=== PATIENT | male | born 2000 | race Hispanic/Latino ===

== ENCOUNTER 2024-02-29 19:38 | Emergency (ER) | payer SELFPAY ==
[2024-02-29 20:05] LABS: Absolute Lymphocytes (CBC) 2.2 K/uL (0.7-4.9); Absolute Monocytes 0.8 K/uL (0.1-1.3); Absolute Neutrophil 4.7 K/uL (1.8-8.0); Basophils % 0.3 % (0-1.3); Eosinophils % 0.5 % (0-4.4); Hematocrit 42.7 % (39.6-49.0); Hemoglobin 14.7 g/dL (13.6-17.9); Lymphocytes % 28.1 % (15.3-44.8); MCH 28.6 pg (27.0-35.0); MCHC 34.5 g/dL (32.0-36.0); MCV 83.1 fL (80-100); MPV 8.6 fL (7.6-11.3); Monocytes % 9.9 % (3.3-12.3); Neutrophils % 61.2 % (41.7-73.7); Nucleated Red Blood Cells % 0.4 % (0-0); Platelets 231 thou/uL (152-406); RBC Red Blood Cell Count 5.14 M/uL (4.33-5.43); Red Cell Distribution Width 15.1 % (12.1-15.2)
[2024-02-29] MEDS ORDERED: NA CHLORIDE 0.9% 1,000 ML ONE (20:07)
[2024-02-29 20:13] LABS: Protime INR 1.24
[2024-02-29 20:16] LABS: Barbiturates NEGATIVE (NEGATIVE); Benzodiazepines NEGATIVE (NEGATIVE); Cocaine NEGATIVE (NEGATIVE); METHAMPHETAM NEGATIVE (NEGATIVE); Methadone NEGATIVE (NEGATIVE); Opiates NEGATIVE (NEGATIVE); Phencyclidine NEGATIVE (NEGATIVE); THC Cannibis POSITIVE (NEGATIVE)
[2024-02-29 20:21] LABS: ALT/SGPT 73 U/L (16-61); AST/SGOT 33 U/L (15-37); Albumin 3.6 g/dL (3.4-5.0); Albumin/Globulin Ratio 0.8 (1.1-1.8); Alkaline Phosphatase 74 U/L (45-117); BUN Blood Urea Nitrogen 10 mg/dL (7-18); Bicarbonate 23 mEq/L (21-32); Bilirubin Direct 0.2 mg/dL (0-0.2); Bilirubin Indirect, Calculated 0.2 mg/dL (0.2-0.8); Bilirubin Total 0.4 mg/dL (0.2-1.0); Globulin 4.3 g/dL (2.3-3.5); Glomerular Filtration Rate 108 ml/min (=/>90); Glucose Level 134 mg/dL (74-106); Protein, Total 7.9 g/dL (6.4-8.2); Sodium Level 140 mEq/L (136-145)
--- NOTE | 2024-02-29 23:35 | EDPHYS ---
Physician Documentation [facility] Name: Ildefonso Saunders Age: 23 yrs Sex: Male : 2000 Arrival Date: 02/29/2024 Time: 19:38 Bed 3 Private MD: ED Physician Stan Nixon HPI: 02/28 19:41 This 23 yrs old Male presents to ER via Unassigned with complaints of ams. rn 19:41 The patient presents with decreased responsiveness. Onset: The symptoms/episode rn began/occurred at an unknown time. Possible causes: alcohol. Current symptoms: In the emergency department the patient's symptoms have improved. It is unknown whether or not the patient has had similar symptoms in the past. Patient brought in by EMS for decreased responsiveness and altered mental status. And was found in gas station bathroom covered in emesis. Patient reports was drinking today, denies any drug use. No trauma. No focal pain. No pain in abdomen. Denies recent fever. Historical: - Allergies: 21:45 No Known Allergies; al5 - PMHx: 21:45 None; al5 - PSHx: 21:45 None; al5 - Immunization history:: Adult Immunizations up to date. - Infectious Disease History:: Denies. - Family history:: not pertinent. - Social history:: Smoking status: unknown. - Hospitalizations: : No recent hospitalization is reported. ROS: 19:41 Constitutional: Negative for fever, chills, and weight loss, Cardiovascular: Negative rn for chest pain, palpitations, and edema, Respiratory: Negative for shortness of breath, cough, wheezing, and pleuritic chest pain, Abdomen/GI: Positive for nausea and vomiting, negative for abdominal pain MS/Extremity: Negative for injury and deformity, Skin: Negative for injury, rash, and discoloration, Neuro: Negative for headache, weakness, numbness, tingling, and seizure, Exam: 19:41 Constitutional: This is a well developed, well nourished patient who is somnolent but rn awakens to voice Head/Face: Normocephalic, atraumatic. ENT: Dry mucous membranes, emesis around mouth Neck: No midline cervical tenderness Cardiovascular: Tachycardic, regular Respiratory: No increased work of breathing, no retractions or nasal flaring. Abdomen/GI: Soft, nontender MS/ Extremity: Pulses equal, no cyanosis Neuro: Patient somnolent upon arrival, awakens to voice and able to follow commands, admits to drinking alcohol today but does not recall anything else. Moves all 4 extremities with equal strength 20:01 ECG was reviewed by the Attending Physician. rt Vital Signs: 19:40 BP 118 / 70; Pulse 95; Resp 18; Temp 97.6; Pulse Ox 95% on R/A; Weight 150.5 kg; Height al5 6 ft. 0 in. ; 20:37 BP 143 / 86; Pulse 82; Resp 18 S; Pulse Ox 97% on R/A; ha1 21:00 BP 119 / 94; Pulse 90; Resp 16; Pulse Ox 96% on R/A; al5 21:30 BP 121 / 87; Pulse 86; Resp 15; Pulse Ox 100% on R/A; al5 22:00 BP 132 / 75; Pulse 90; Resp 16; Pulse Ox 99% on R/A; al5 22:00 BP 128 / 92; Pulse 89; Resp 17; Pulse Ox 99% on R/A; al5 19:40 Body Mass Index 45.00 (150.50 kg, 182.88 cm) al5 MDM: 19:40 Medical Screening Exam initiated rn 23:41 Differential Diagnosis: Alcohol intoxication, electrolyte disturbance. Data reviewed: rt vital signs, nurses notes, lab test result(s), EKG. Consideration of Admission/Observation Escalation of care including admission/observation considered. Patient return to baseline mental status, is ambulatory, patient did have a long time to recover from the alcohol tox occasion, I did order CT scan as he was unable to provide sufficient history, ever, his mental status did improve, he refused to CT scan and adamantly denies trauma, we will forego CT at this time.. I considered the following discharge prescriptions or medication management in the emergency department Medications were administered in the Emergency Department. See MAR. Care significantly affected by the following Social Determinants of Health: Misuse of alcohol and/or drugs. Counseling: I had a detailed discussion with the patient and/or guardian regarding the historical points, exam findings, and any diagnostic results supporting the discharge/admit diagnosis, lab results, the need for outpatient follow up, to return to the emergency department if symptoms worsen or persist or if there are any questions or concerns that arise at home. Response to treatment: the patient's symptoms have markedly improved after treatment, Awake, coherent, ambulatory. 02/28 19:40 Order name: Acetaminophen; Complete Time: 20:34 rn 02/28 19:40 Order name: Basic Metabolic Panel; Complete Time: 20:34 rn 02/28 19:40 Order name: CBC with Diff; Complete Time: 20:34 rn 02/28 19:40 Order name: ETOH Level; Complete Time: 20:34 rn 02/28 19:40 Order name: Hepatic Function; Complete Time: 20:34 rn 02/28 19:40 Order name: PT-INR; Complete Time: 20:34 rn 02/28 19:40 Order name: Ptt, Activated; Complete Time: 20:34 rn 02/28 19:40 Order name: Salicylate; Complete Time: 20:34 rn 02/28 19:40 Order name: Urine Drug Screen; Complete Time: 20:34 rn 02/28 19:40 Order name: EKG - Nurse/Tech; Complete Time: 19:59 rn 02/28 19:40 Order name: IV Saline Lock; Complete Time: :59 rn 02/28 19:40 Order name: Labs collected and sent; Complete Time: 19:59 rn EC:01 Rate is 84 beats/min. Rhythm is regular, Normal Sinus Rhythm with No ectopy. QRS [place] rt is Normal. [place] interval is normal. QRS interval is normal. QT interval is normal. No Q waves. Administered Medications: 20:11 Drug: NS 0.9% IV 1000 ml IV at 1000 ml once; to be given as a bolus over 60 minutes al5 Route: IV; Rate: 1000 ml; Site: right antecubital; 23:44 Follow up: Response: No adverse reaction; IV Status: Completed infusion; IV Intake: al5 1000ml Disposition Summary: 02/29/24 23:34 Discharge Ordered Notes: Location: Home rt Problem: new rt Symptoms: have improved rt Condition: Stable rt Diagnosis - Alcohol abuse with intoxication rt Followup: rt - With: Private Physician - When: 2 - 3 days - Reason: Discharge Instructions: - Discharge Summary Sheet rt - Alcohol Intoxication rt Forms: - Medication Reconciliation Form rt - Antibiotic Education rt - Prescription Opioid Use rt - Patient Portal Instructions rt - Leadership Thank You Letter rt Signatures: Dispatcher [employer] EDMS Benton, MorganMD MD robyn Ryan, MD MD rt Langhorst, Amanda, RN RN al5 Corrections: (The following items were deleted from the chart) 19:41 19:41 ACETAMINOPHEN+C.LAB.BRZ ordered. EDMS EDMS 19:41 19:41 BASIC METABOLIC PANEL+C.LAB.BRZ ordered. EDMS EDMS 19:41 19:41 CBC+H.LAB.BRZ ordered. EDMS EDMS 19:41 19:41 ETHANOL+C.LAB.BRZ ordered. EDMS EDMS 19:41 19:41 HEPATIC FUNCTION+C.LAB.BRZ ordered. EDMS EDMS 19:41 19:41 PROTIME (+INR)+COAG.LAB.BRZ ordered. EDMS EDMS 19:41 19:41 PTT, ACTIVATED+COAG.LAB.BRZ ordered. EDMS EDMS 19:41 19:41 SALICYLATE+C.LAB.BRZ ordered. EDMS EDMS 19:41 19:41 URINE DRUG SCREEN+UC.LAB.BRZ ordered. EDMS EDMS 23:42 23:03 Head C Spine MPR Wo Con+CT.RAD.BRZ ordered. EDMS EDMS
--- NOTE | 2024-02-29 23:35 | ER ---
Nurse's Notes [facility] Name: Ildefonso Saunders Age: 23 yrs Sex: Male : 2000 Arrival Date: 02/29/2024 Time: 19:38 Bed 3 Private MD: Diagnosis: Alcohol abuse with intoxication Presentation: 02/28 19:40 Chief complaint: EMS states: patient found unresponsive in a gas station bathroom. al5 patient on scene was only alert to painful stimuli. patient now alert to verbal stimuli and admits to having a few drinks tonight. 19:40 Coronavirus screen: At this time, the client does not indicate any symptoms associated al5 with coronavirus-19. Ebola Screen: No symptoms or risks identified at this time. Initial Sepsis Screen: Does the patient meet any 2 criteria? Altered Mental Status. HR > 90 bpm. Does the patient have a suspected source of infection? No. Patient's initial sepsis screen is negative. Risk Assessment: Do you want to hurt yourself or someone else? Patient reports no desire to harm self or others. Onset of symptoms was February 29, 2024. 19:40 Method Of Arrival: EMS: [facility] al5 19:40 Acuity: ENEIDA 3 al5 Triage Assessment: 19:40 General: Appears in no apparent distress. unkempt, well nourished, Behavior is al5 cooperative, drowsy, Smells of alcohol. Pain: Denies pain. EENT: No signs and/or symptoms were reported regarding the EENT system. Neuro: Level of Consciousness is alert, obeys commands, Oriented to person, place, time, situation. Cardiovascular: Capillary refill < 3 seconds Patient's skin is warm and dry. Respiratory: Airway is patent Respiratory effort is even, unlabored, Respiratory pattern is regular, symmetrical. GI: Abdomen is non-distended, obese. : No signs and/or symptoms were reported regarding the genitourinary system. Derm: Skin is intact, is healthy with good turgor. Musculoskeletal: No deficits noted. No signs and/or symptoms reported regarding the musculoskeletal system. Historical: - Allergies: 21:45 No Known Allergies; al5 - PMHx: 21:45 None; al5 - PSHx: 21:45 None; al5 - Immunization history:: Adult Immunizations up to date. - Infectious Disease History:: Denies. - Family history:: not pertinent. - Social history:: Smoking status: unknown. - Hospitalizations: : No recent hospitalization is reported. Screenin:01 [facility] ED Fall Risk Assessment (Adult) History of falling in the last 3 months, al5 including since admission No falls in past 3 months (0 pts) Confusion or Disorientation No (0 pts) Intoxicated or Sedated Yes (3 pts) Impaired Gait Yes (1 pt) Mobility Assist Device Used Altered Elimination Yes (1 pt) Score/Fall Risk Level 3 or more points = High Risk Oriented to surroundings, Maintained a safe environment, Hourly rounding (assess needs \\T\\ fall precautionary measures) done, Used ambulatory aids as needed (educated on \\T\\ assisted with), Utilized family, sitter, or virtual vp foundation as indicated. Abuse screen: Denies threats or abuse. Denies injuries from another. Nutritional screening: No deficits noted. Tuberculosis screening: No symptoms or risk factors identified. Assessment: 20:01 Reassessment: see triage assessment. al5 20:38 Reassessment: EYES CLOSED. Respiratory: Airway is patent Respiratory effort is even, ha1 unlabored, Respiratory pattern is regular, symmetrical. 21:07 Reassessment: Patient appears in no apparent distress at this time. No changes from al5 previously documented assessment. Patient and/or family updated on plan of care and expected duration. Pain level reassessed. Patient is alert, oriented x 3, equal unlabored respirations, skin warm/dry/pink. patient resting comfortably at this time. 21:45 Reassessment: jordan friend: [phone]. al5 22:00 Reassessment: Patient appears in no apparent distress at this time. No changes from al5 previously documented assessment. Patient and/or family updated on plan of care and expected duration. Pain level reassessed. Patient is alert, oriented x 3, equal unlabored respirations, skin warm/dry/pink. 23:22 Reassessment: Patient appears in no apparent distress at this time. No changes from al5 previously documented assessment. Patient and/or family updated on plan of care and expected duration. Pain level reassessed. Patient is alert, oriented x 3, equal unlabored respirations, skin warm/dry/pink. 23:26 Reassessment: patient refused CT. ha1 Psych: 23:30 [place] Suicide Severity Screening: In the past month, have you wished you were al5 or wished you could go to sleep and not wake up? Patient responds "No." "In the past month, have you actually had any thoughts of killing yourself?" Patient responds "no." "In your lifetime, have you ever done anything, started to do anything, or prepared to do anything to end your life?" Patient responds "no.". Subjective: Patient's mood is pleasant Delusions are denied, Hallucinations are denied Having thoughts of denies. Objective: Patient is cooperative, Speech is normal, Affect is appropriate. Interventions: Patient placed in hospital gown. Urine collected and sent for urine drug test. Safety Checks: Patient uses. Commitment: n/a. Vital Signs: 19:40 BP 118 / 70; Pulse 95; Resp 18; Temp 97.6; Pulse Ox 95% on R/A; Weight 150.5 kg; Height al5 6 ft. 0 in. ; 20:37 BP 143 / 86; Pulse 82; Resp 18 S; Pulse Ox 97% on R/A; ha1 21:00 BP 119 / 94; Pulse 90; Resp 16; Pulse Ox 96% on R/A; al5 21:30 BP 121 / 87; Pulse 86; Resp 15; Pulse Ox 100% on R/A; al5 22:00 BP 132 / 75; Pulse 90; Resp 16; Pulse Ox 99% on R/A; al5 22:00 BP 128 / 92; Pulse 89; Resp 17; Pulse Ox 99% on R/A; al5 19:40 Body Mass Index 45.00 (150.50 kg, 182.88 cm) al5 ED Course: 19:39 Patient arrived in ED. lg3 19:40 Morgan Benton MD is Attending Physician. rn 19:40 Arm band placed on left wrist. Patient placed in the treatment room, on a stretcher, on al5 search and rescue officer, on pulse oximetry. 19:45 Inserted saline lock: 20 gauge in right antecubital area, using aseptic technique. ha1 Blood collected. Flushed with 10 mL NS. 19:54 Roseanne Raymond, CHANCE is Primary Nurse. al5 19:57 Attending Physician role handed off by Morgan Benton MD rt 19:57 Stan Nixon MD is Attending Physician. rt 19:58 Triage completed. al5 19:59 Acetaminophen Sent. ha1 19:59 Basic Metabolic Panel Sent. ha1 19:59 CBC with Diff Sent. ha1 19:59 ETOH Level Sent. ha1 19:59 Hepatic Function Sent. ha1 19:59 PT-INR Sent. ha1 19:59 Ptt, Activated Sent. ha1 19:59 Salicylate Sent. ha1 19:59 Urine Drug Screen Sent. ha1 20:00 Patient has correct armband on for positive identification. Placed in gown. Bed in low al5 position. Call light in reach. Side rails up X2. Provided Education on: plan of care. 21:45 No provider procedures requiring assistance completed. al5 23:43 IV discontinued, intact, bleeding controlled, No redness/swelling at site. Pressure al5 dressing applied. Administered Medications: 20:11 Drug: NS 0.9% IV 1000 ml IV at 1000 ml once; to be given as a bolus over 60 minutes al5 Route: IV; Rate: 1000 ml; Site: right antecubital; 23:44 Follow up: Response: No adverse reaction; IV Status: Completed infusion; IV Intake: al5 1000ml Medication: 20:01 VIS not applicable for this client. al5 Intake: 23:44 IV: 1000ml; Total: 1000ml. al5 Outcome: 23:34 Discharge ordered by . rt 23:44 Discharged to home ambulatory, with friend, al5 23:44 Condition: good 23:44 Discharge instructions given to patient, Instructed on discharge instructions, follow up and referral plans. Demonstrated understanding of instructions, follow-up care, 23:44 Patient left the ED. al5 Signatures: Morgan Benton MD MD rn Able, Lacie, RN RN 3 Perla Veloz RN RN ha1 Stan Nixon MD MD rt Roseanne Raymond RN RN al5 Corrections: (The following items were deleted from the chart) 20:00 20:00 Arm band placed on left wrist. Patient placed in the treatment room, on a al5 stretcher, on search and rescue officer, on pulse oximetry, al5
[2024-02-29 23:48] VITALS: TEMP 97.6
[2024-02-29 23:54] VITALS: BP 128/92; O2SAT 99
--- NOTE | 2024-03-06 13:11 | EKG ---
Test Date: 2024-02-29 Test Time: 19:47:16 Hospice Massage Therapist: CHEN MEASUREMENT RESULTS: Intervals: Rate: 84 IL: 174 QRSD: 84 QT: 358 QTc: 423 [place]: P: 15 [place]: 174 QRS: 62 T: 9 INTERPRETIVE STATEMENTS: Normal sinus rhythm Nonspecific ST and T wave abnormality Abnormal ECG No previous ECG available for comparison Electronically Signed On 03-06-24 13:03:12 WARRANTY MANAGER by Alfa Dumont
== END 2024-02-29 23:44 | disposition home or self-care (01) ==
LOC: ER 19:38
DX: F10.129 Alcohol abuse with intoxication, unspecified (principal)
CPT/HCPCS: 36415; 80048; 80076; 80143; 80179; 80307; 82077; 85025; 85610; 85730; 93005; 96360; 96361; 99285; J7030